=== PATIENT | female | born 1965 | race African-American/Black ===

== ENCOUNTER 2018-12-07 18:08 | Emergency (ER) | payer SELFPAY ==
[~2018-12-07] VITALS: Ht 172.7 cm; Wt 99.8 kg
[2018-12-07 19:35] VITALS: BP 172/93
[2018-12-07 20:17] LABS: BASO # 0.1 x10^3/uL (0.0-0.2); BASO % 1 % (0-3); EOS # 0.1 x10^3/uL (0.0-0.7); EOS % 1 % (0-3); HEMATOCRIT 38.6 % (36.0-47.0); HEMOGLOBIN 13.3 g/dL (12.0-15.5); LYMPH # 2.2 x10^3/uL (1.0-4.8); LYMPH % 25 % (24-48); MEAN CORPUSCULAR HEMOGLOBIN 31 pg (25-35); MEAN CORPUSCULAR HGB CONC 34 g/dL (31-37); MEAN CORPUSCULAR VOLUME 90 fL (79-100); MONO # 0.6 x10^3/uL (0.0-1.1); MONO % 7 % (0-9); NEUT # 5.5 x10^3/uL (1.8-7.7); NEUT % 65 % (31-73); PLATELET COUNT 225 x10^3/uL (140-400); RED BLOOD COUNT 4.31 x10^6/uL (3.50-5.40); RED CELL DISTRIBUTION WIDTH 15.7 % (11.5-14.5); WHITE BLOOD COUNT 8.5 x10^3/uL (4.0-11.0)
[2018-12-07 20:20] LABS: BILIRUBIN,URINE NEGATIVE (NEG); CLARITY,URINE CLEAR; COLOR,URINE YELLOW; NITRITE,URINE NEGATIVE (NEG); PROTEIN,URINE 30 mg/dL (NEG-TRACE); UROBILINOGEN,URINE 0.2 mg/dL (0.2 mg/dL)
[2018-12-07 20:25] LABS: BACTERIA,URINE MANY /HPF (0-FEW); RBC,URINE 0 /HPF (0-2); SQUAMOUS EPITHELIAL CELL,UR FEW /LPF
[2018-12-07 20:56] LABS: CALCIUM 9.5 mg/dL (8.5-10.1); CREATININE 1.3 mg/dL (0.6-1.0); GFR 51.6; POTASSIUM 3.8 mmol/L (3.5-5.1)
[2018-12-07 21:02] LABS: ALBUMIN 4.2 g/dL (3.4-5.0); ALBUMIN/GLOBULIN RATIO 0.9 (1.0-1.7); TOTAL BILIRUBIN 0.3 mg/dL (0.2-1.0)
--- NOTE | 2018-12-07 21:09 | RAD ---
CHEST AP ONLY History: Chest pain Comparison: December 05, 2018 Findings: Single view of the chest is submitted. There is no infiltrate, pneumothorax, or effusion. Cardiac silhouette is stable, within normal limits given technique. Impression: 1. No acute radiographic abnormality is identified. Electronically signed by: Maged Costello MD (12/07/2018 9:06 PM) [facility]
[2018-12-07] MEDS ORDERED: FAMO-63 PO (22:13)
--- NOTE | 2018-12-07 22:13 | PHYS DOC ---
Past Medical History Past Medical History: Hypertension, Stroke Past Surgical History: Tubal ligation Alcohol Use: None Drug Use: None Adult General Chief Complaint Chief Complaint: ABDOMINAL PAIN HPI HPI Patient is a 53 year old [place] female presents with multiple medical complaints. Patient was recently admitted to this facility 4 days ago for hypertensive urgency, abnormal EKG and lower abdominal pain. The patient had extensive workup and was sent home with blood pressure medications which the patient has been compliant taking. Patient reports intermittent sharp abdominal pain is sporadic occurring every few hours without provocative or preceding symptoms. It is described as sharp and lasts for seconds at a time. Reports vomiting clearly when the abdominal pain occurs. .Denies chills sweats, diarrhea. No urinary frequency urgency hematuria dysuria. Eyes any new symptoms or complaints since hospital discharge. The abdominal pain is not new and has been ongoing for several months occurred while in the hospital stay. The patient had extensive workup for abdominal pain including CT and incl consult is of partial right dilatation due to possible stenosis versus obstruction. Patient did have a urologic consult recommendations of outpatient follow-up. Patient states she has not been contacted yet to schedule and she was discharged home yesterday on the weekend. She denies other symptoms or complaints. Review of Systems Review of Systems Review symptoms as per history of present illness. All other review symptoms are negative. All other systems were reviewed and found to be within normal limits, except as documented in this note. Allergies Allergies Allergies Coded Allergies Type Severity Reaction Last Updated Verified No Known Drug Allergies 12/04/18 No Physical Exam Physical Exam Constitutional: Well developed, well nourished, no acute distress, non-toxic appearance. [] HENT: Normocephalic, atraumatic, bilateral external ears normal, oropharynx moist, no oral exudates, nose normal. [] Eyes: PERRLA, EOMI, conjunctiva normal, no discharge. [] Neck: Normal range of motion, no tenderness, supple, no stridor. [] Cardiovascular:Heart rate regular rhythm, no murmur [] Lungs & Thorax: Bilateral breath sounds clear to auscultation [] Abdomen: Bowel sounds normal, soft, no tenderness. [] Skin: Warm, dry, no erythema, no rash. [] Back: No tenderness, no CVA tenderness. [] Extremities: No tenderness, no cyanosis, no clubbing, ROM intact, no edema. [] Neurologic: Alert and oriented X 3, normal motor function, normal sensory function, no focal deficits noted. [] Psychologic: Affect normal, judgement normal, mood normal. [] Current Patient Data Lab Values Laboratory Tests Test 12/07/18 19:40 12/07/18 19:48 12/07/18 20:39 Urine Collection Type Unknown Urine Color Yellow Urine Clarity Clear Urine pH 6.0 Urine Specific [place] 1.010 Urine Protein 30 mg/dL (NEG-TRACE) Urine Glucose (UA) Negative mg/dL (NEG) Urine Ketones (Stick) Negative mg/dL (NEG) Urine Blood Trace (NEG) Urine Nitrite Negative (NEG) Urine Bilirubin Negative (NEG) Urine Urobilinogen Dipstick 0.2 mg/dL (0.2 mg/dL) Urine Leukocyte Esterase Negative (NEG) Urine RBC 0 /HPF (0-2) Urine WBC 5-10 /HPF (0-4) Urine Squamous Epithelial Cells Few /LPF Urine Bacteria Many /HPF (0-FEW) White Blood Count 8.5 x10^3/uL (4.0-11.0) Red Blood Count 4.31 x10^6/uL (3.50-5.40) Hemoglobin 13.3 g/dL (12.0-15.5) Hematocrit 38.6 % (36.0-47.0) Mean Corpuscular Volume 90 fL (79-100) Mean Corpuscular Hemoglobin 31 pg (25-35) Mean Corpuscular Hemoglobin Concent 34 g/dL (31-37) Red Cell Distribution Width 15.7 % (11.5-14.5) H Platelet Count 225 x10^3/uL (140-400) Neutrophils (%) (Auto) 65 % (31-73) Lymphocytes (%) (Auto) 25 % (24-48) Monocytes (%) (Auto) 7 % (0-9) Eosinophils (%) (Auto) 1 % (0-3) Basophils (%) (Auto) 1 % (0-3) Neutrophils # (Auto) 5.5 x10^3/uL (1.8-7.7) Lymphocytes # (Auto) 2.2 x10^3/uL (1.0-4.8) Monocytes # (Auto) 0.6 x10^3/uL (0.0-1.1) Eosinophils # (Auto) 0.1 x10^3/uL (0.0-0.7) Basophils # (Auto) 0.1 x10^3/uL (0.0-0.2) Sodium Level 137 mmol/L (136-145) Potassium Level 3.8 mmol/L (3.5-5.1) Chloride Level 101 mmol/L (98-107) Carbon Dioxide Level 25 mmol/L (21-32) Anion Gap 11 (6-14) Blood Urea Nitrogen 24 mg/dL (7-20) H Creatinine 1.3 mg/dL (0.6-1.0) H Estimated GFR (Cockcroft-Gault) 51.6 BUN/Creatinine Ratio 18 (6-20) Glucose Level 137 mg/dL (70-99) H Calcium Level 9.5 mg/dL (8.5-10.1) Total Bilirubin 0.3 mg/dL (0.2-1.0) Aspartate Amino Transferase (AST) 18 U/L (15-37) Alanine Aminotransferase (ALT) 26 U/L (14-59) Alkaline Phosphatase 126 U/L (46-116) H Troponin I Quantitative < 0.017 ng/mL (0.000-0.055) Total Protein 9.0 g/dL (6.4-8.2) H Albumin 4.2 g/dL (3.4-5.0) Albumin/Globulin Ratio 0.9 (1.0-1.7) L Lipase 458 U/L (73-393) H Laboratory Tests 12/07/18 19:48 Laboratory Tests 12/07/18 20:39 EKG EKG [EKG: Reviewed] Radiology/Procedures Radiology/Procedures [] Course & Med Decision Making Course & Med Decision Making Pertinent Labs and Imaging studies reviewed. (See chart for details) [Recent patient hospital medical records including CT imaging, lab and urological consults reviewed. Patient's labs are essentially unchanged. No additional studies indicated at this time. Symptoms are not new and patient has been appropriately referred to allergy and memory care physician. Patient's abdomen soft nonsurgical my exam. I agree with patient's previous assessment and discharge plan.] Dragon Disclaimer Dragon Disclaimer This electronic medical record was generated, in whole or in part, using a voice recognition dictation system. Departure Departure Impression: Primary Impression: Abdominal pain Disposition: 09 ADMITTED INPATIENT Referrals: NO PCP (PCP) Patient Instructions: Peptic Ulcer Disease, [id number] Additional Instructions: Please take Pepcid twice daily and take Tylenol as needed for pain. Follow instructions provided to robel recent hospital stay and follow-up with local PCP and urology services. Scripts Famotidine (PEPCID) 20 Mg Tablet 20 MG PO HS, #60 TAB Prov: JAMIL SIMMONS DO 12/07/18 JAMIL SIMMONS DO Dec 07, 2018 22:13
--- NOTE | 2018-12-08 06:35 | EKG ---
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
== END 2018-12-07 22:23 | disposition home or self-care (01) ==
LOC: ER 18:08
DX: R10.30 Lower abdominal pain, unspecified (principal); I10 Essential (primary) hypertension; Z86.73 Personal history of transient ischemic attack (TIA), and cerebral infarction without residual deficits; Z98.51 Tubal ligation status
CPT/HCPCS: 36415; 71045; 80053; 81001; 83690; 84484; 85025; 87086; 93005; 99285-25

== ENCOUNTER 2019-02-02 17:57 | Emergency (ER) | payer SELFPAY ==
[~2019-02-02] VITALS: Ht 172.7 cm; Wt 102.1 kg
[~2019-02-02 17:57] MED LIST: FAMO-63 PO
[2019-02-02 18:18] VITALS: BP 201/104
[2019-02-02] MEDS ORDERED: METH4TAB2 PO (19:06)
[2019-02-02] MEDS ORDERED: AMOX500C PO (19:06)
[2019-02-02] MEDS ORDERED: BENZ100C PO (19:06)
--- NOTE | 2019-02-02 19:06 | PHYS DOC ---
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 Patient denies fever or shortness of breath. Patient denies any history except for hypertension. Patient denies any pain. ([facility]) Review of Systems Review of Systems HENT: nasal congestion or denies sore throat [] Respiratory: cough or denies shortness of breath [] All other systems were reviewed and found to be within normal limits, except as documented in this note. (HARDY L[employer] FORM SETTER SUPERVISOR) Allergies Allergies Allergies Coded Allergies Type Severity Reaction Last Updated Verified No Known Drug Allergies 12/04/18 No (POPPY PONCE MD) Physical Exam Physical Exam Constitutional: Well developed, well nourished, no acute distress, non-toxic appearance. [] HENT: Normocephalic, atraumatic, bilateral external ears normal, oropharynx moist, no oral exudates, nose normal. Maxillary sinus tenderness[] Eyes: PERRLA, EOMI, conjunctiva normal, no discharge. [] Neck: Normal range of motion, no tenderness, supple, no stridor. [] Cardiovascular:Heart rate regular rhythm, no murmur [] Lungs & Thorax: Bilateral breath sounds clear to auscultation [] Abdomen: Bowel sounds normal, soft, no tenderness, no masses, no pulsatile masses. [] Skin: Warm, dry, no erythema, no rash. [] Back: No tenderness, no CVA tenderness. [] Extremities: No tenderness, no cyanosis, no clubbing, ROM intact, no edema. [] Neurologic: Alert and oriented X 3, normal motor function, normal sensory function, no focal deficits noted. [] Psychologic: Affect normal, judgement normal, mood normal. [] ([facility]) Current Patient Data Vital Signs Vital Signs Date Time Temp Pulse Resp B/P (MAP) Pulse Ox O2 Delivery O2 Flow Rate FiO2 02/02/19 18:18 98.2 98 16 201/104 (136) 97 Room Air 98.2 (POPPY PONCE MD) EKG EKG [] (HARDY LANE APRN) Radiology/Procedures Radiology/Procedures [] (HARDY LANE APRN) Course & Med Decision Making Course & Med Decision Making Alert and oriented. Speaks in full clear senses. Ambulatory with a steady gait. Skin pink warm and dry. Mucous membranes are moist. Maxillary sinus tenderness with palpation. Throat is pink without swelling or exudates. Tympanic membranes pearly white. Lungs are clear to auscultation in all lobes. Afebrile. Patient st ates she's been using [id number] cold medications and nasal sprays. Patient states these medications are not working as well as they were in the beginning.[] (HARDY LANE APRN) Course & Med Decision Making Staff Physician Addendum: I was working in the ER during the course of this patient's visit. I was available for consultation as needed, but I was not directly involved in the care of this patient. (POPPY PONCE MD) Dragon Disclaimer Dragon Disclaimer This electronic medical record was generated, in whole or in part, using a voice recognition dictation system. (HARDY LANE APRN) Departure Departure Impression: Primary Impression: Cough Additional Impression: Sinusitis Disposition: 01 HOME, SELF-CARE Condition: STABLE Referrals: NO PCP (PCP) Patient Instructions: Cough, Adult, Sinusitis Additional Instructions: Follow-up with primary care provider. You can continue taking [id number] cold medications. Take medications as prescribed. Scripts Methylprednisolone (MEDROL) 4 Mg Tab.ds.pk 1 PKG PO UD, #1 PKG Prov: HARDY LANE APRN 02/02/19 Benzonatate (TESSALON PERLE) 100 Mg Capsule 1 CAP PO TID, #30 CAP Prov: HARDY LANE APRN 02/02/19 Amoxicillin (AMOXICILLIN) 500 Mg Capsule 1 CAP PO BID for 7 Days, #14 CAP Prov: HARDY LANE APRN 02/02/19 Problem Qualifiers Additional Impression: Sinusitis Sinusitis location: maxillary Chronicity: acute Recurrence: non-rec urrent Qualified Codes: J01.00 - Acute maxillary sinusitis, unspecified HARDY LANE APRN Feb 02, 2019 19:06 POPPY PONCE MD Feb 03, 2019 00:35
== END 2019-02-02 19:16 | disposition home or self-care (01) ==
LOC: ER 17:57
DX: J01.00 Acute maxillary sinusitis, unspecified (principal); R05 Cough; I10 Essential (primary) hypertension; Z98.51 Tubal ligation status; Z86.73 Personal history of transient ischemic attack (TIA), and cerebral infarction without residual deficits
CPT/HCPCS: 99283

== ENCOUNTER 2019-02-23 20:28 | Emergency (ER) | payer SELFPAY ==
[~2019-02-23] VITALS: Ht 170.2 cm; Wt 102.1 kg
[~2019-02-23 20:28] MED LIST changes: +AMOX500C PO; +BENZ100C PO; +METH4TAB2 PO
--- NOTE | 2019-02-23 20:42 | PHYS DOC ---
Past Medical History Past Medical History: Hypertension, Stroke Past Surgical History: Tubal ligation Alcohol Use: None Drug Use: None Adult General Chief Complaint Chief Complaint: SYNCOPE HPI HPI Patient is a 53-year-old female who presents after reportedly having a syncopal episode at home. Patient states that she was standing up and cooking some dinner and the next thing she knew she was lying on the floor. She states that when she came to she was covered in sweat. She denies having had any nausea or vomiting. She does indicate that she had another syncopal episode 2 nights ago. She states that she has had some intermittent chest pain over the recent months but has no chest pain today and no shortness of breath. She also denies any headache or any other pain. Patient states that she is feeling back to normal at this time.[] Review of Systems Review of Systems Constitutional: Denies fever or chills [] Respiratory: Denies cough or shortness of breath [] Cardiovascular: No additional information not addressed in HPI [] GI: Denies abdominal pain, nausea, vomiting or diarrhea [] Integument: Denies rash or skin lesions. Positive diaphoresis. [] Neurologic: Denies headache, focal weakness or sensory changes. Positive syncope. [] All other systems were reviewed and found to be within normal limits, except as documented in this note. Current Medications Current Medications Current Medications Medications (Trade) Dose Ordered Sig/Helene Start Time Stop Time Status Last Admin Dose Admin Sodium Chloride 500 ml @ 500 mls/hr 1X ONCE 02/23/19 20:45 02/23/19 21:44 DC 02/23/19 21:14 500 MLS/HR Allergies Allergies Allergies Coded Allergies Type Severity Reaction Last Updated Verified No Known Drug Allergies 12/04/18 No Physical Exam Physical Exam Constitutional: Well developed, well nourished, no acute distress, non-toxic appearance. [] HENT: Normocephalic, atraumatic, bilateral external ears normal, oropharynx moist, no oral exudates, nose normal. [] Eyes: PERRLA, EOMI, conjunctiva normal, no discharge. [] Neck: Normal range of motion, no tenderness, supple. [] Cardiovascular: Regular rate and rhythm[] Lungs & Thorax: Bilateral breath sounds clear to auscultation [] Abdomen: Bowel sounds normal, soft, no tenderness. [] Skin: Warm, dry, no erythema, no rash. [] Extremities: No tenderness, no cyanosis, no clubbing, ROM intact. [] Neurologic: Alert and oriented X 3, no focal deficits noted. [] Current Patient Data Vital Signs Vital Signs Date Time Temp Pulse Resp B/P (MAP) Pulse Ox O2 Delivery O2 Flow Rate FiO2 02/23/19 20:30 97.8 83 18 149/90 (109) 99 Room Air 97.8 Lab Values Laboratory Tests Test 02/23/19 21:08 White Blood Count 6.5 x10^3/uL (4.0-11.0) Red Blood Count 4.02 x10^6/uL (3.50-5.40) Hemoglobin 12.1 g/dL (12.0-15.5) Hematocrit 36.2 % (36.0-47.0) Mean Corpuscular Volume 90 fL (79-100) Mean Corpuscular Hemoglobin 30 pg (25-35) Mean Corpuscular Hemoglobin Concent 33 g/dL (31-37) Red Cell Distribution Width 16.2 % (11.5-14.5) H Platelet Count 227 x10^3/uL (140-400) Neutrophils (%) (Auto) 43 % (31-73) Lymphocytes (%) (Auto) 47 % (24-48) Monocytes (%) (Auto) 7 % (0-9) Eosinophils (%) (Auto) 2 % (0-3) Basophils (%) (Auto) 1 % (0-3) Neutrophils # (Auto) 2.8 x10^3/uL (1.8-7.7) Lymphocytes # (Auto) 3.1 x10^3/uL (1.0-4.8) Monocytes # (Auto) 0.5 x10^3/uL (0.0-1.1) Eosinophils # (Auto) 0.1 x10^3/uL (0.0-0.7) Basophils # (Auto) 0.0 x10^3/uL (0.0-0.2) Sodium Level 139 mmol/L (136-145) Potassium Level 4.1 mmol/L (3.5-5.1) Chloride Level 101 mmol/L (98-107) Carbon Dioxide Level 29 mmol/L (21-32) Anion Gap 9 (6-14) Blood Urea Nitrogen 13 mg/dL (7-20) Creatinine 1.3 mg/dL (0.6-1.0) H Estimated GFR (Cockcroft-Gault) 51.6 BUN/Creatinine Ratio 10 (6-20) Glucose Level 155 mg/dL (70-99) H Calcium Level 8.8 mg/dL (8.5-10.1) Magnesium Level 1.9 mg/dL (1.8-2.4) Total Bilirubin 0.3 mg/dL (0.2-1.0) Aspartate Amino Transferase (AST) 17 U/L (15-37) Alanine Aminotransferase (ALT) 27 U/L (14-59) Alkaline Phosphatase 119 U/L (46-116) H Troponin I Quantitative < 0.017 ng/mL (0.000-0.055) Total Protein 8.0 g/dL (6.4-8.2) Albumin 3.4 g/dL (3.4-5.0) Albumin/Globulin Ratio 0.7 (1.0-1.7) L Laboratory Tests 02/23/19 21:08 Laboratory Tests 02/23/19 21:08 EKG EKG EKG demonstrates normal sinus rhythm with rate of 65.[] Radiology/Procedures Radiology/Procedures [] Impressions: Portable chest x-ray demonstrates no acute process. Course & Med Decision Making Course & Med Decision Making Pertinent Labs and Imaging studies reviewed. (See chart for details) Patient rechecked at 9:45 PM and patient states that she feels 100% better. She continues to deny any chest pain or shortness of breath. She also denies headache. Patient like to be discharged home. Dragon Disclaimer Dragon Disclaimer This electronic medical record was generated, in whole or in part, using a voice recognition dictation system. Departure Departure Impression: Primary Impression: Vasovagal syncope Disposition: 01 HOME, SELF-CARE Condition: STABLE Referrals: NO PCP (PCP) Patient Instructions: Syncope ANGELINA PAIZ Jr. DO Feb 23, 2019 20:42
[2019-02-23] MEDS ORDERED: IV NORMAL SALINE 500ML BAG 500 ML IV ONE (20:45)
[2019-02-23 21:28] LABS: BASO % 1 % (0-3); EOS # 0.1 x10^3/uL (0.0-0.7); EOS % 2 % (0-3); HEMATOCRIT 36.2 % (36.0-47.0); HEMOGLOBIN 12.1 g/dL (12.0-15.5); LYMPH # 3.1 x10^3/uL (1.0-4.8); LYMPH % 47 % (24-48); MEAN CORPUSCULAR HEMOGLOBIN 30 pg (25-35); MEAN CORPUSCULAR HGB CONC 33 g/dL (31-37); MEAN CORPUSCULAR VOLUME 90 fL (79-100); MONO # 0.5 x10^3/uL (0.0-1.1); MONO % 7 % (0-9); NEUT # 2.8 x10^3/uL (1.8-7.7); NEUT % 43 % (31-73); PLATELET COUNT 227 x10^3/uL (140-400); RED BLOOD COUNT 4.02 x10^6/uL (3.50-5.40); RED CELL DISTRIBUTION WIDTH 16.2 % (11.5-14.5); WHITE BLOOD COUNT 6.5 x10^3/uL (4.0-11.0)
[2019-02-23 21:30] VITALS: BP 155/90
[2019-02-23 21:35] LABS: CALCIUM 8.8 mg/dL (8.5-10.1); CREATININE 1.3 mg/dL (0.6-1.0); GFR 51.6; POTASSIUM 4.1 mmol/L (3.5-5.1)
[2019-02-23 21:40] LABS: ALBUMIN 3.4 g/dL (3.4-5.0); ALBUMIN/GLOBULIN RATIO 0.7 (1.0-1.7); MAGNESIUM 1.9 mg/dL (1.8-2.4); TOTAL BILIRUBIN 0.3 mg/dL (0.2-1.0)
--- NOTE | 2019-02-24 03:28 | RAD ---
PORTABLE CHEST 1V INDICATION: Syncope. Hypertension. CHF. COMPARISON STUDY: 12/07/2018. FINDINGS: Lungs: Normal lung volume. No pulmonary mass or consolidation. The tracheobronchial tree and hilar structures are normal. Pleura: No pleural effusion or pneumothorax. Heart and Mediastinum: The cardiomediastinal silhouette is normal. The great vessels of the thorax are normal. IMPRESSION: No acute cardiopulmonary process. Electronically signed by: Maged Hernandez MD (02/24/2019 3:25 AM) [facility]
--- NOTE | 2019-02-24 07:07 | EKG ---
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
== END 2019-02-23 21:55 | disposition home or self-care (01) ==
LOC: ER 20:28
DX: R55 Syncope and collapse (principal); I10 Essential (primary) hypertension; Z98.51 Tubal ligation status; Z86.73 Personal history of transient ischemic attack (TIA), and cerebral infarction without residual deficits
CPT/HCPCS: 36415; 71045; 80053; 83735; 84484; 85025; 93005; 96360; 99285; J7040

== ENCOUNTER 2019-03-21 10:21 | Emergency (ER) | payer SELFPAY ==
--- NOTE | 2019-03-21 10:28 | PHYS DOC ---
Past Medical History Past Medical History: GERD, Hypertension, Stroke Past Surgical History: Tubal ligation Alcohol Use: None Drug Use: None Adult General Chief Complaint Chief Complaint: ABDOMINAL PAIN HPI HPI Patient is a 53 year old male who was brought here by EMS from home due to epigastric abdominal pain that been going on for 2 days. She says she has history of peptic ulcer, denies vomiting blood, no dark stool. Patient said the pain had been off and on for 2 days. Patient has taken qbxq-yae-nlmyqte medicat ion did not get better. Patient denies any chest pain, no cough, no fever. She is not on any blood thinner. She also complaint of lower abdominal pain. History hypertension, she took her medications this morning already. aLL OTHER ros IS NEGATIVE UNLESS OTHERWISE NOTED IN hpi Review of Systems Review of Systems See above Current Medications Current Medications Current Medications Medications (Trade) Dose Ordered Sig/Helene Start Time Stop Time Status Last Admin Dose Admin Famotidine (Pepcid Vial) 20 mg 1X ONCE 03/21/19 10:30 03/21/19 10:31 DC 03/21/19 10:37 20 MG Fentanyl Citrate (Fentanyl 2ml Vial) 50 mcg 1X ONCE 03/21/19 12:30 03/21/19 12:31 DC 03/21/19 12:29 50 MCG Hydralazine HCl (Apresoline Inj) 20 mg 1X ONCE 03/21/19 11:15 03/21/19 11:16 DC 03/21/19 11:20 20 MG Info (CONTRAST GIVEN -- Rx MONITORING) 1 each PRN DAILY PRN 03/21/19 11:30 03/23/19 11:29 Iohexol (Omnipaque 300 Mg/ml) 75 ml 1X ONCE 03/21/19 11:30 03/21/19 11:31 DC 03/21/19 12:50 75 ML Lorazepam (Ativan Inj) 2 mg 1X ONCE 03/21/19 11:45 03/21/19 11:46 DC 03/21/19 11:37 2 MG Multi-Ingredient Mouthwash/Gargle (Gi Cocktail) 20 ml 1X ONCE 03/21/19 10:30 03/21/19 10:31 DC 03/21/19 10:30 20 ML Ondansetron HCl (Zofran) 4 mg 1X ONCE 03/21/19 12:30 03/21/19 12:31 DC 03/21/19 12:29 4 MG Allergies Allergies Allergies Coded Allergies Type Severity Reaction Last Updated Verified No Known Drug Allergies 12/04/18 No Physical Exam Physical Exam See above Constitutional: Well developed, well nourished, no acute distress, non-toxic appearance. [] HENT: Normocephalic, atraumatic, bilateral external ears normal, oropharynx moist, no oral exudates, nose normal. [] Eyes: PERRLA, EOMI, conjunctiva normal, no discharge. [] Neck: Normal range of motion, no tenderness, supple, no stridor. [] Cardiovascular:Heart rate regular rhythm, no murmur [] Lungs & Thorax: Bilateral breath sounds clear to auscultation [] Abdomen: Bowel sounds normal, soft, There is tenderness in epigastric and suprapubic area, no masses, no pulsatile masses. [] Skin: Warm, dry, no erythema, no rash. [] Back: No tenderness, no CVA tenderness. [] Extremities: No tenderness, no cyanosis, no clubbing, ROM intact, no edema. [] Neurologic: Alert and oriented X 3, normal motor function, normal sensory function, no focal deficits noted. [] Psychologic: Affect normal, judgement normal, mood normal. [] Current Patient Data Vital Signs Vital Signs Date Time Temp Pulse Resp B/P (MAP) Pulse Ox O2 Delivery O2 Flow Rate FiO2 03/21/19 13:19 79 16 167/94 (118) 97 Room Air Lab Values Laboratory Tests Test 03/21/19 10:22 03/21/19 10:45 White Blood Count 7.3 x10^3/uL (4.0-11.0) Red Blood Count 5.06 x10^6/uL (3.50-5.40) Hemoglobin 15.6 g/dL (12.0-15.5) H Hematocrit 44.5 % (36.0-47.0) Mean Corpuscular Volume 88 fL (79-100) Mean Corpuscular Hemoglobin 31 pg (25-35) Mean Corpuscular Hemoglobin Concent 35 g/dL (31-37) Red Cell Distribution Width 15.9 % (11.5-14.5) H Platelet Count 285 x10^3/uL (140-400) Neutrophils (%) (Auto) 71 % (31-73) Lymphocytes (%) (Auto) 22 % (24-48) L Monocytes (%) (Auto) 6 % (0-9) Eosinophils (%) (Auto) 0 % (0-3) Basophils (%) (Auto) 1 % (0-3) Neutrophils # (Auto) 5.2 x10^3/uL (1.8-7.7) Lymphocytes # (Auto) 1.6 x10^3/uL (1.0-4.8) Monocytes # (Auto) 0.5 x10^3/uL (0.0-1.1) Eosinophils # (Auto) 0.0 x10^3/uL (0.0-0.7) Basophils # (Auto) 0.0 x10^3/uL (0.0-0.2) Prothrombin Time 12.7 SEC (11.7-14.0) Prothrombin Time INR 1.0 (0.8-1.1) Activated Partial Thromboplast Time 28 SEC (24-38) Sodium Level 138 mmol/L (136-145) Potassium Level 3.7 mmol/L (3.5-5.1) Chloride Level 100 mmol/L (98-107) Carbon Dioxide Level 23 mmol/L (21-32) Anion Gap 15 (6-14) H Blood Urea Nitrogen 20 mg/dL (7-20) Creatinine 1.1 mg/dL (0.6-1.0) H Estimated GFR (Cockcroft-Gault) 62.6 BUN/Creatinine Ratio 18 (6-20) Glucose Level 176 mg/dL (70-99) H Calcium Level 10.1 mg/dL (8.5-10.1) Total Bilirubin 0.6 mg/dL (0.2-1.0) Aspartate Amino Transferase (AST) 21 U/L (15-37) Alanine Aminotransferase (ALT) 30 U/L (14-59) Alkaline Phosphatase 170 U/L (46-116) H Troponin I Quantitative < 0.017 ng/mL (0.000-0.055) DO-Uqx-U-Type Natriuretic Peptide 217 pg/mL (0-124) H Total Protein 10.2 g/dL (6.4-8.2) H Albumin 4.5 g/dL (3.4-5.0) Albumin/Globulin Ratio 0.8 (1.0-1.7) L Lipase 264 U/L (73-393) Urine Collection Type Unknown Urine Color Yellow Urine Clarity Clear Urine pH 6.0 Urine Specific [place] >=1.030 Urine Protein >=300 mg/dL (NEG-TRACE) Urine Glucose (UA) 250 mg/dL (NEG) Urine Ketones (Stick) 40 mg/dL (NEG) Urine Blood Small (NEG) Urine Nitrite Negative (NEG) Urine Bilirubin Negative (NEG) Urine Urobilinogen Dipstick 1.0 mg/dL (0.2 mg/dL) Urine Leukocyte Esterase Negative (NEG) Urine RBC Occ /HPF (0-2) Urine WBC 0 /HPF (0-4) Urine Bacteria Few /HPF (0-FEW) Laboratory Tests 03/21/19 10:22 Laboratory Tests 03/21/19 10:22 EKG EKG ekg was read by this physician at 1026, rate of 70 bpm, no STEMI. Radiology/Procedures Radiology/Procedures [][facility] [address] [place] [address] IMAGING REPORT Signed PATIENT: WARNER NATH JACCOUNT: [id number] : 1965 LOCATION: ER AGE: 53 SEX: F EXAM STATUS: REG ER ORD. PHYSICIAN: HONEY BARRIGA DO REASON: LOWER ABDOMINAL PAIN PROCEDURE: CT ABD PELV W/ IV CONTRST ONLY CT abdomen and pelvis with IV contrast 03/21/2019. Reason for exam: Lower abdominal pain. CT images were performed using an infusion of 75 mL Omnipaque 300. No oral contrast was given. Exposure: One or more of the following individualized dose reduction techniques were utilized for this examination: 1. Automated exposure control 2. Adjustment of the mA and/or kV according to patient size 3. Use of iterative reconstruction technique. Comparison is made with an exam of 12/04/2018. FINDINGS: The lung bases are clear. The liver and spleen are homogeneous in density and normal in configuration. Both kidneys enhance with contrast. Right renal atrophy is again noted. There is no longer suggestion of obstruction on this side. The adrenal glands are not enlarged. The pancreas appears normal. No retroperitoneal or mesenteric adenopathy is seen. There is no apparent abdominal soft tissue mass or inflammatory process. Evaluation of the GI tract is slightly limited by lack of oral contrast. At least a portion of a normal caliber appendix is thought to be seen extending posteriorly in the pelvis along the right side of the uterus. Images through the pelvis show no apparent abnormality of the distal ureters or bladder. No pelvic or inguinal adenopathy is seen. There is no apparent pelvic soft tissue mass. Configuration of the uterus suggests a large left-sided fibroid. No adnexal abnormality is seen. There is no apparent separate mass or inflammatory process. IMPRESSION: Probable uterine fibroid. No apparent acute abnormality. Electronically signed by: Bobby Hughes Jr., MD (03/21/2019 1:05 PM) [facility] [place] and SIGNED BY: BOBBY HUGHES Jr, MD DATE: 03/21/19 1305 [facility] [address] [place] [address] IMAGING REPORT Signed PATIENT: WARNER NATH JACCOUNT: [id number] : 1965 LOCATION: ER AGE: 53 SEX: F EXAM STATUS: PRE ER ORD. PHYSICIAN: HONEY BARRIGA DO REASON: CHEST PAIN PROCEDURE: PORTABLE CHEST 1V Exam performed: One view chest. Indication: Chest pain Date of Service: 03/21/2019 10:23 AM Comparison: One view chest from December 07, 2018. Single AP upright portable view chest findings: Cardiomediastinal silhouette is within limits of normal. No acute infiltrates, effusion or pneumothorax is detected. The bony structures are normal. Impression: No acute cardiopulmonary process is detected. Electronically signed by: Gely Castro MD (03/21/2019 11:02 AM) [facility] DICTATED and SIGNED BY: GELY CASTRO MD DATE: 03/21/19 1107 Course & Med Decision Making Course & Med Decision Making Pertinent Labs and Imaging studies reviewed. (See chart for details) [Patient is a 53-year-old female who was evaluated today for abdominal pain in the epigastric this area. Patient lab work was okay, diagnosed with gastritis we will discharge her home with Carafate and Prilosec. Patient also found to have a large uterine fibroids. Patient noted that she had this problem in the past. Patient was instructed to follow with her CHIEF DIGITAL MEDIA OFFICER DOCTOR for outpatient evaluation and treatment. Patient blood pressure was elevated. Patient was recommended by this physician that she needs to DOUBLE THE DOSE OF HER CARVEDILOL. We'll need to follow up with her family doctor on Saturday and for reevaluation. She is amenable to plan of care. Her blood pressure improved in the ER. Her pain was improved as well. Dragon Disclaimer Dragon Disclaimer This electronic medical record was generated, in whole or in part, using a voice recognition dictation system. Departure Departure Impression: Primary Impression: Gastritis Additional Impressions: HTN (hypertension) Fibroid uterus Disposition: HOME, SELF-CARE Condition: IMPROVED Referrals: NO PCP (PCP) FOLLOW UP WITH YOUR FAMILY DOCTOR FOR A REFERRAL TO GI SPECIALIST. FOLLOW UP WITH OB.VACCINE MANAGER FOR YOUR FIBROID PROBLEM. Patient Instructions: Fibroids, Lyrv-gw-Lmbc, Gastritis, Adult, Hypertension Additional Instructions: Thank you for visiting [facility]. We appreciate you trusting us with your care. If any additional problems come up don't hesitate to return to visit us. Please follow up with your primary care provider so they can plan additional care if needed and know about the problem that you had. If symptoms worsen come back to the Emergency Department. Any concerning symptoms that start such as chest pain, shortness of air, weakness or numbness on one side of the body, running high fevers or any other concerning symptoms return to the ER. YOU NEED TO TAKE CARVEDILOL 6.25 MG BY MOUTH ONE IN AM AND ONE AT NIGHT. FOLLOW UP WITH YOUR DOCTOR ON SATURDAY FOR REEVALUATION. Scripts Sucralfate (CARAFATE) 1 Gm Tablet 1 TAB PO QID for 21 Days, #84 TAB 0 Refills Prov: HONEY BARRIGA DO 03/21/19 Omeprazole Magnesium (PRILOSEC OTC) 20 Mg Tablet. 20 MG PO DAILY for 30 Days, #30 TAB Prov: HONEY BARRIGA DO 03/21/19 Problem Qualifiers HONEY BARRIGA DO Mar 21, 2019 10:28
[2019-03-21] MEDS ORDERED: FAMOTIDINE 20 MG/2 ML VIAL IVP ONE (10:30)
[2019-03-21] MEDS ORDERED: LIDO:MAALOX 1:1 20 ML SINGLE DOSE. SWSW ONE (10:30)
[2019-03-21 10:39] LABS: BASO % 1 % (0-3); EOS % 0 % (0-3); HEMATOCRIT 44.5 % (36.0-47.0); HEMOGLOBIN 15.6 g/dL (12.0-15.5); LYMPH # 1.6 x10^3/uL (1.0-4.8); LYMPH % 22 % (24-48); MEAN CORPUSCULAR HEMOGLOBIN 31 pg (25-35); MEAN CORPUSCULAR HGB CONC 35 g/dL (31-37); MEAN CORPUSCULAR VOLUME 88 fL (79-100); MONO # 0.5 x10^3/uL (0.0-1.1); MONO % 6 % (0-9); NEUT # 5.2 x10^3/uL (1.8-7.7); NEUT % 71 % (31-73); PLATELET COUNT 285 x10^3/uL (140-400); RED BLOOD COUNT 5.06 x10^6/uL (3.50-5.40); RED CELL DISTRIBUTION WIDTH 15.9 % (11.5-14.5); WHITE BLOOD COUNT 7.3 x10^3/uL (4.0-11.0)
[2019-03-21 10:49] LABS: CALCIUM 10.1 mg/dL (8.5-10.1); CREATININE 1.1 mg/dL (0.6-1.0); GFR 62.6; POTASSIUM 3.7 mmol/L (3.5-5.1)
[2019-03-21 10:53] LABS: BILIRUBIN,URINE NEGATIVE (NEG); CLARITY,URINE CLEAR; COLOR,URINE YELLOW; NITRITE,URINE NEGATIVE (NEG); PROTEIN,URINE >=300 mg/dL (NEG-TRACE)
[2019-03-21 10:57] LABS: ALBUMIN 4.5 g/dL (3.4-5.0); ALBUMIN/GLOBULIN RATIO 0.8 (1.0-1.7); TOTAL BILIRUBIN 0.6 mg/dL (0.2-1.0); TOTAL PROTEIN 10.2 g/dL (6.4-8.2)
--- NOTE | 2019-03-21 11:06 | RAD ---
Exam performed: One view chest. Indication: Chest pain Date of Service: 03/21/2019 10:23 AM Comparison: One view chest from December 07, 2018. Single AP upright portable view chest findings: Cardiomediastinal silhouette is within limits of normal. No acute infiltrates, effusion or pneumothorax is detected. The bony structures are normal. Impression: No acute cardiopulmonary process is detected. Electronically signed by: Gely Castro MD (03/21/2019 11:02 AM) [facility]
[2019-03-21 11:07] LABS: RBC,URINE OCC /HPF (0-2)
[2019-03-21 11:08] LABS: BACTERIA,URINE FEW /HPF (0-FEW); WBC,URINE 0 /HPF (0-4)
[2019-03-21] MEDS ORDERED: hydrALAZINE 20 MG/ML VIAL. IVP ONE (11:15)
[2019-03-21 11:17] LABS: PROTHROMBIN TIME PATIENT 12.7 SEC (11.7-14.0)
[2019-03-21] MEDS ORDERED: CONTRAST GIVEN. MC PRN (11:30)
[2019-03-21] MEDS ORDERED: IOHEXOL 300 MG/ML 100ML VIAL. IV ONE (11:30)
[2019-03-21] MEDS ORDERED: ONDANSETRON PF 4 MG/2 ML VIAL. ONE (12:23)
[2019-03-21] MEDS ORDERED: fentaNYL PF VIAL 100 MCG/2 ML VIAL ONE (12:23)
[2019-03-21] MEDS ORDERED: fentaNYL PF VIAL 100 MCG/2 ML VIAL IVP ONE (12:30)
[2019-03-21] MEDS ORDERED: ONDANSETRON PF 4 MG/2 ML VIAL. IV ONE (12:30)
--- NOTE | 2019-03-21 13:08 | RAD ---
CT abdomen and pelvis with IV contrast 03/21/2019. Reason for exam: Lower abdominal pain. CT images were performed using an infusion of 75 mL Omnipaque 300. No oral contrast was given. Exposure: One or more of the following individualized dose reduction techniques were utilized for this examination: 1. Automated exposure control 2. Adjustment of the mA and/or kV according to patient size 3. Use of iterative reconstruction technique. Comparison is made with an exam of 12/04/2018. FINDINGS: The lung bases are clear. The liver and spleen are homogeneous in density and normal in configuration. Both kidneys enhance with contrast. Right renal atrophy is again noted. There is no longer suggestion of obstruction on this side. The adrenal glands are not enlarged. The pancreas appears normal. No retroperitoneal or mesenteric adenopathy is seen. There is no apparent abdominal soft tissue mass or inflammatory process. Evaluation of the GI tract is slightly limited by lack of oral contrast. At least a portion of a normal caliber appendix is thought to be seen extending posteriorly in the pelvis along the right side of the uterus. Images through the pelvis show no apparent abnormality of the distal ureters or bladder. No pelvic or inguinal adenopathy is seen. There is no apparent pelvic soft tissue mass. Configuration of the uterus suggests a large left-sided fibroid. No adnexal abnormality is seen. There is no apparent separate mass or inflammatory process. IMPRESSION: Probable uterine fibroid. No apparent acute abnormality. Electronically signed by: Marquis Hughes Jr., MD (03/21/2019 1:05 PM) [facility] [place]
[2019-03-21 14:20] VITALS: BP 174/92
[2019-03-21] MEDS ORDERED: SUCR1TAB35 PO (14:20)
[2019-03-21] MEDS ORDERED: OMEP20TA63 PO (14:20)
--- NOTE | 2019-03-23 08:59 | EKG ---
[facility] [address] [place] [address] Test Date: 2019-03-21 Test Time: 10:24:41 Pat Name: WARNER NATH Department: Room: Gender: F Maintenance Of Way Clerk: : 1965 Requested By: HONEY BARRIGA Order Number: [id number] Reading MD: Measurements Intervals [place] Rate: 70 P: 19 ME: 158 QRS: 40 QRSD: 88 T: 74 QT: 424 QTc: 460 Interpretive Statements SINUS RHYTHM INCOMPLETE RIGHT BUNDLE BRANCH BLOCK MODERATE AMPLITUDE CRITERIA FOR LVH NON SPECIFIC T ABNORMALITY NON SPECIFIC ST DEPRESSION BORDERLINE ECG No previous ECG available for comparison
== END 2019-03-21 14:30 | disposition home or self-care (01) ==
LOC: ER 10:21
DX: K29.70 Gastritis, unspecified, without bleeding (principal); R10.13 Epigastric pain; I10 Essential (primary) hypertension; R10.30 Lower abdominal pain, unspecified; D25.9 Leiomyoma of uterus, unspecified; K21.9 Gastro-esophageal reflux disease without esophagitis; Z98.51 Tubal ligation status
CPT/HCPCS: 36415; 71045; 74177; 80053; 81001; 83690; 83880; 84484; 85025; 85610; 85730; 96374; 96375; 99285; J0360; J2060; J2405; J3010; J3490; Q9967; 93005